=== PATIENT | male | born 1970 | race African-American/Black ===

== ENCOUNTER 2018-06-22 13:55 | Emergency (ER) | payer SELFPAY ==
--- NOTE | 2018-06-22 14:56 | EDM.PDOC ---
ED HPI GENERAL MEDICAL PROBLEM - General Chief Complaint: Headache Stated Complaint: [facility] Time Seen by Provider: 06/22/18 14:06 Source of Information: Reports: Patient, RN Notes Reviewed History Limitations: Reports: No Limitations - History of Present Illness INITIAL COMMENTS - FREE TEXT/NARRATIVE: The patient states that he developed fatigue, generalized body aches and pains, and chills, yesterday. No actual fever, and the patient is afebrile here in the ED tonight. He reports that he has had an occasional cough, and that he developed a headache about 2 hours ago. When asked, the patient confirmed that he has a sore throat, and that his eyes are burning. No prior similar symptoms. The patient states that he took Advil and Sudafed, without relief of his symptoms. The patient reports that a coworker has similar symptoms. The patient's PCP is in [place]. The patient did not receive an influenza vaccine this season. Generalized Pain Score (Numeric/FACES): 9 - Related Data Allergies Allergy/AdvReac Type Severity Reaction Status Date / Time No Known Allergies Allergy Verified 06/22/18 14:05 Home Meds: Home Meds Oseltamivir [Tamiflu] 1 tab PO Q12H #9 cap 06/22/18 [Rx] Past Medical History - Past Health History Medical/Surgical History: Denies Medical/Surgical History Social & Family History - Tobacco Use Smoking Status *Q: Never Smoker - Alcohol Use Alcohol Use History: No - Recreational Drug Use Recreational Drug Use: No - Living Situation & Occupation Living situation: Reports: Single, with Family Occupation: Employed ([employer]) ED ROS GENERAL - Review of Systems Review Of Systems: ROS reveals no pertinent complaints other than HPI. ED EXAM, GENERAL - Physical Exam Exam: See Below Exam Limited By: No Limitations General Appearance: Alert, WD/WN, No Apparent Distress Eye Exam: Bilateral Eye: EOMI, Other (scleral injection) Ears: Normal External Exam, Normal Canal, Hearing Grossly Normal, Normal TMs Nose: Normal Inspection, No Blood, Other (Bilateral nasal mucosal erythema) Throat/Mouth: Normal Inspection, Normal Lips, Normal Teeth, Normal Gums, Normal Oropharynx, Normal Voice, No Airway Compromise Head: Atraumatic, Normocephalic Neck: Normal Inspection, Supple, Non-Tender, Full Range of Motion. No: Lymphadenopathy (L), Lymphadenopathy (R) Respiratory/Chest: No Respiratory Distress, Lungs Clear, Normal Breath Sounds, No Accessory Muscle Use. No: Decreased Breath Sounds, Crackles, Rhonchi, Wheezing, Prolonged Expiration Cardiovascular: Normal Peripheral Pulses, No Edema, No Gallop, No JVD, No Murmur , No Rub, Tachycardia (regular rhythm) Peripheral Pulses: 4+: Radial (L), Radial (R) GI/Abdominal: Normal Bowel Sounds, Soft, Non-Tender, No Organomegaly, No Distention, No Abnormal Bruit, No Mass (Male) Exam: Deferred Rectal (Males) Exam: Deferred Back Exam: Normal Inspection, Full Range of Motion, NT Extremities: Normal Inspection, Normal Range of Motion, No Pedal Edema, Normal Capillary Refill Neurological: Alert, Oriented, Normal Cognition, No Motor/Sensory Deficits Psychiatric: Normal Affect Skin Exam: Warm, Dry, Intact, Normal Color, No Rash Course - Vital Signs Last Recorded V/S: Last Vital Signs Temp 37.3 C 06/22/18 14:01 Pulse 107 H 06/22/18 14:01 Resp 18 06/22/18 14:01 BP 153/77 H 06/22/18 14:01 Pulse Ox 98 06/22/18 14:01 - Orders/Labs/Meds Labs: Laboratory Tests 06/22/18 06/22/18 Range/Units 15:00 15:00 WBC 4.96 (4.23-9.07) K/mm3 RBC 5.04 (4.63-6.08) M/mm3 Hgb 14.0 (13.7-17.5) gm/L Hct 40.2 (40.1-51.0) % MCV 79.8 (79.0-92.2) fl MCH 27.8 (25.7-32.2) pg MCHC 34.8 (32.2-35.5) g/dl RDW Std Deviation 41.2 (35.1-43.9) fL Plt Count 95 L (163-337) K/mm3 MPV 10.1 (9.4-12.3) fl Neutrophils % (Manual) 74 H (40-60) % Band Neutrophils % 0 (0-10) % Lymphocytes % (Manual) 12 L (20-40) % Atypical Lymphs % 0 % Monocytes % (Manual) 13 H (2-10) % Eosinophils % (Manual) 1 (0.8-7.0) % Basophils % (Manual) 0 L (0.2-1.2) Platelet Estimate Marked dec Plt Morphology Comment See note RBC Morph Comment Normal Sodium 138 (136-145) mEq/L Potassium 3.8 (3.5-5.1) mEq/L Chloride 101 (98-107) mEq/L Carbon Dioxide 28 (21-32) mEq/L Anion Gap 12.8 (5-15) BUN 9 (7-18) mg/dL Creatinine 1.4 H (0.7-1.3) mg/dL Est Cr Clr Drug Dosing 70.06 mL/min Estimated GFR (MDRD) 54 (>60) mL/min BUN/Creatinine Ratio 6.4 L (14-18) Glucose 103 (74-106) mg/dL Calcium 9.0 (8.5-10.1) mg/dL Total Bilirubin 0.3 (0.2-1.0) mg/dL AST 25 (15-37) U/L ALT 34 (16-63) U/L Alkaline Phosphatase 42 L (46-116) U/L Total Protein 8.0 (6.4-8.2) g/dl Albumin 3.9 (3.4-5.0) g/dl Globulin 4.1 gm/dL Albumin/Globulin Ratio 1.0 (1-2) Meds: Medications Discontinued Medications Generic Name Dose Route Start Last Admin Trade Name Freq PRN Reason Stop Dose Admin Oseltamivir Phosphate 75 mg 06/22/18 16:19 06/22/18 16:30 Tamiflu PO 06/22/18 16:20 75 mg ONETIME ONE Administration - Re-Assessments/Exams Free Text/Narrative Re-Assessment/Exam: 06/22/18 15:07 2-view chest radiograph reviewed. The cardiac silhouette is within normal limits. No pulmonary vascular congestion. No pleural effusions. No focal infiltrate, although there are areas of increased peribronchial thickening, suggestive of bronchitis. No pneumothorax. Formal read per the Radiologist pending. 06/22/18 16:20 The patient's influenza swab has returned positive for Influenza A. The remainder of his workup is unremarkable. Because the patient's symptoms started just yesterday, he is still within the window of time for treatment. The patient will receive 75 mg oral Tamiflu here in the ED, and be discharged home with a prescription to finish a 5-day course. I will write him a note for work through Thursday, at which time he can follow-up in our clinic. Departure - Departure Time of Disposition: 16:26 Disposition: Home, Self-Care 01 Condition: Fair Clinical Impression: Influenza A - Discharge Information *PRESCRIPTION DRUG MONITORING PROGRAM REVIEWED*: Not Applicable *COPY OF PRESCRIPTION DRUG MONITORING REPORT IN PATIENT JIL: Not Applicable Prescriptions: Oseltamivir [Tamiflu] 1 tab PO Q12H #9 cap Instructions: Influenza, Adult Referrals: PCP,None [Primary Care Provider] - Forms: ED Department Discharge, ED Return to Work/School Form Additional Instructions: You were seen in the emergency room for generalized fatigue, generalized body aches and pains, chills, headache, sore throat, burning eyes, and occasional cough. Workup in the ER included blood work, a rapid strep test, an influenza swab, and a chest x-ray. Your influenza swab returned positive for Influenza A. The remainder of your workup was unremarkable. You do not have pneumonia. You do not have strep throat. You have been started on the anti-influenza medicine Tamiflu. A prescription for Tamiflu [facility], located in the [facility], across the street from the hospital. Take one tablet every 12 hours, starting tomorrow morning, 06/23/2018, as prescribed. Finish the entire prescription. Take [id number] ibuprofen, 2-3 tablets (400-600 mg) every 8 hours, with food, as needed for aches and pains. We do not recommend that you take [id number] cough or cold remedies, as they have been shown to be of no use, but do have side effects, such as a stomachache. Follow-up with Caren Weber in the clinic this coming 06/25/2018. You will need to make an appointment. If any other problems, please do not hesitate to return to the ER.
--- NOTE | 2018-06-22 15:36 | CR ---
Chest: Two views of the chest are obtained. Comparison: No previous study. Areas of increased peribronchial thickening are seen on both sides, worse on the left side most likely representing moderately severe bronchitis. Lungs otherwise are clear. No definite pneumonia seen at this time. Heart size and mediastinum are normal. Bony structures are unremarkable. Impression: 1. Moderately severe bronchitis. Diagnostic code #3
[2018-06-22] MEDS ORDERED: Oseltamivir 75 MG Cap PO ONE (16:19)
== END 2018-06-22 17:10 | disposition home or self-care (01) ==
LOC: JD.ED 13:55
DX: J10.1 Influenza due to other identified influenza virus with other respiratory manifestations (principal); F17.210 Nicotine dependence, cigarettes, uncomplicated
CPT/HCPCS: 36415; 71046; 80053; 85007; 85027; 87081; 87430; 87804; 99284; A9270